=== PATIENT | female | born 1975 | race Caucasian/White ===

== ENCOUNTER 2018-02-13 14:58 | Observation (INO) | payer MEDICARE ==
--- NOTE | 2018-02-13 15:01 | PDOC ---
History of Present Illness - General Stated Complaint: INTOX Time Seen by Provider: 02/13/18 15:01 History Source: Patient, EMS Exam Limitations: Intoxication - History of Present Illness Initial Comments: 02/13/18 15:20 42 year old female BIBA for ETOH intoxication. Per EMS pt was found by cleaning staff at [facility] intoxicated and brought to ED. Pt reports no pain. States she has not been vomiting, but has vomit on her shirt. Pt refuses to answer questions or answers inappropriately. Past History - Past Medical History Allergies/Adverse Reactions: Allergies Allergy/AdvReac Type Severity Reaction Status Date / Time No Allergy Information Allergy Verified 02/13/18 15:32 Available Review of Systems - Review of Systems Able to Perform ROS?: No Comments:: 02/13/18 15:22 Pt is intoxicated. *Physical Exam - Physical Exam Comments: 02/13/18 15:22 Constitutional: Well-nourished, Well-developed, appearing stated age. dishelved. vomit on her shirt and pants. HEENT: head is normocephalic, atraumatic. EOMI. PERRLA. Neck: supple. Full ROM. Heart: regular rhythm. no murmurs, rubs or gallops. Lungs: clear to auscultation bilaterally. no crackles, rhonchi or wheezing. no stridor. Abdomen: soft, nontender. normal bowel sounds. no rebound, guarding, masses. Extremities: Peripheral pulses intact. No lower extremity edema. Neurological: CN 2-12 grossly intact. Moves all four extremities. oriented x1. Psych: awake. somnolent. answers questions inappropriately. follows commands. ED Treatment Course - LABORATORY CBC & Chemistry Diagram: 02/13/18 15:44 02/13/18 15:44 Medical Decision Making - Medical Decision Making 02/13/18 15:37 42 year old female [facility]. Pt responsive, answers questions inappropriately, elusive. Initial Vital Signs Pulse Resp BP Pulse Ox 94 H 16 108/60 98 02/13/18 15:24 02/13/18 15:24 02/13/18 15:24 02/13/18 15:24 No tachycardia. No tachypnea. Mild hypotension - Likely dehydrated. - Banana bag ordered No hypoxia on room air. Concern for intoxication - Pending tox labs - Pending EKG 02/13/18 16:30 Pt pulled out her IV. 02/13/18 16:56 CBC WBC 9.5 K/mm3 (4.0-10.0) 02/13/18 15:44 RBC 4.69 M/mm3 (3.60-5.2) 02/13/18 15:44 Hgb 14.7 GM/dL (10.7-15.3) 02/13/18 15:44 Hct 44.4 % (32.4-45.2) 02/13/18 15:44 MCV 94.7 fl (80-96) 02/13/18 15:44 MCH 31.3 pg (25.7-33.7) 02/13/18 15:44 MCHC 33.1 g/dl (32.0-36.0) 02/13/18 15:44 RDW 15.6 % (11.6-15.6) 02/13/18 15:44 Plt Count 411 K/MM3 (134-434) 02/13/18 15:44 MPV 9.1 fl (7.5-11.1) 02/13/18 15:44 Absolute Neuts (auto) 6.1 K/mm3 (1.5-8.0) 02/13/18 15:44 Neutrophils % 64.4 % (42.8-82.8) 02/13/18 15:44 Lymphocytes % 28.8 % (8-40) 02/13/18 15:44 Monocytes % 4.9 % (3.8-10.2) 02/13/18 15:44 Eosinophils % 1.1 % (0-4.5) 02/13/18 15:44 Basophils % 0.8 % (0-2.0) 02/13/18 15:44 Nucleated RBC % 0 % (0-0) 02/13/18 15:44 CMP Sodium 147 mmol/L (136-145) H 02/13/18 15:44 Potassium 4.1 mmol/L (3.5-5.1) 02/13/18 15:44 Chloride 111 mmol/L (98-107) H 02/13/18 15:44 Carbon Dioxide 29 mmol/L (21-32) 02/13/18 15:44 Anion Gap 7 MMOL/L (8-16) L 02/13/18 15:44 BUN 6 mg/dL (7-18) L 02/13/18 15:44 Creatinine 0.7 mg/dL (0.55-1.3) 02/13/18 15:44 Creat Clearance w eGFR > 60 (>60) 02/13/18 15:44 Random Glucose 92 mg/dL (74-106) 02/13/18 15:44 Serum Osmolality 414 mosm/kg (278-305) H 02/13/18 15:44 Calcium 9.1 mg/dL (8.5-10.1) 02/13/18 15:44 Magnesium 2.3 mg/dL (1.8-2.4) 02/13/18 15:44 Total Bilirubin 0.2 mg/dL (0.2-1) 02/13/18 15:44 AST 22 U/L (15-37) 02/13/18 15:44 ALT 22 U/L (13-61) 02/13/18 15:44 Alkaline Phosphatase 55 U/L (45-117) 02/13/18 15:44 Total Protein 7.5 g/dl (6.4-8.2) 02/13/18 15:44 Albumin 4.1 g/dl (3.4-5.0) 02/13/18 15:44 Lipase 279 U/L (73-393) 02/13/18 15:44 Beta HCG, Quant < 1.0 mIU/ml 02/13/18 15:44 Elevated serum osmols. Slightly elevated Sodium. - Pt is likely dehydrated - NS ordered Normal potassium. Pt is not . Alcohol level 449 Negative salicyclates and acetaminophen. 02/13/18 17:26 Pt vomiting. IV placed into left AC. IV Zofran ordered. Pt continues to be confused. Pt follows commands but requires repetitive explanation. 02/13/18 18:06 Pt reassessed, sleeping comfortably. 02/13/18 18:25 Pt refused EKG. Pt is spitting at tech attempting to perform the EKG. 02/13/18 18:50 Pt reassessed, sleeping comfortably. 02/13/18 19:23 I signed this patient out to Dr. Mccann, who will assume care for the patient while she is in the Emergency Department. *DC/Admit/Observation/Transfer Diagnosis at time of Disposition: Alcohol intoxication - Referrals Referrals: Juan Diego Bland MD [Staff Physician] - Carlos White MD [Staff Physician] - - Patient Instructions Printed Discharge Instructions: DI for Alcohol Abuse Additional Instructions: You were seen today for alcohol intoxication. Your blood work revealed your sodium (salt) was a little high. You received fluids for this. The rest of your blood work was normal. Your refused the EKG. I advise you to seek detox treatment. Stopping drinking alcohol on your own can result in withdrawal. I have included a referral for a couple of detox physicians. Call them tomorrow morning and seek information on receiving treatment. Follow up with your primary care doctor in 1-2 days. Your care is not complete until you follow up. Return to the Emergency Department for tremors, fever, chills, vomiting, altered mental status, chest pain, shortness of breath, or any other new, worsening or concerning symptoms. - Post Discharge Activity
[2018-02-13 15:32] VITALS: BMI 58.6
[2018-02-13] MEDS ORDERED: FOLIC ACID INJECTION - 1 MG, THIAMINE HCL 100 MG, MULTIVIT INJECTION ADULT 10 ML in SOD... IVPB ONE (15:38)
--- NOTE | 2018-02-13 15:54 | PDOC ---
Attending Attestation - Resident Resident Name: Evelyn Cabrera - ED Attending Attestation I have performed the following: I have examined & evaluated the patient, The case was reviewed & discussed with the resident, I agree w/resident's findings & plan - HPI HPI: 02/13/18 16:21 The patient is a 42 year old female, who presents to the emergency department via EMS with alcohol intoxication, with n/v. As per EMS, the patient was found intoxicated in her hotel room at the [facility] by the cleaning staff. Patient is a poor historian secondary to alcohol intoxication. 02/13/18 16:24 - Physicial Exam PE: 02/13/18 16:21 Clinically intoxicated, slurring speech, goes back to sleep but arousable. Poorly cooperative, not agitated. +vomitus on shirt, disheveled. PERRL, EOMI, dry membranes. +scleral injection. no neck tenderness. RRR, CTAB, abdomen soft, NT, WWP, no external signs of trauma. gait unable to be assessed 02/13/18 16:24 02/15/18 09:15 - Medical Decision Making 02/13/18 16:23 42-year-old female with limited medical history presenting with alcohol intoxication, found at local [facility] with 3 empty fireballs. history is limited secondary to her presentation. Does appear to have vomitus on her shirt but does not complaining of any nausea, no external signs of trauma. DDx. alcohol intoxication, alcohol withdrawal. drug intoxication; Pancreatitis, hepatitis, , hydration, metabolic/electorally disturbances, toxic ingestant basic labs and lytes with hypernatremia, c/w poor hydration and intoxicated state. will hydrate with IVF, given banana bag and repletion. however, pt pulled out IV and poorly cooperative. preg test_neg serum tox screen_ negative, +ETOH as expected EKG_NSR, nonischemic. normal intervals including QRS and QTc no indication for Urine drug screen, as not likely to size changer. appears clinically intoxicated, will monitor closely. defer imaging at this time , check again with sobriety and reassessment. pt monitored closely in the ED, sobriety hold. remained comfortable, no acute events, VS remain stable. signed out to evening team pending reeval 02/15/18 09:15
[2018-02-13 15:55] LABS: BASO % 0.8 % (0-2.0); EOS % 1.1 % (0-4.5); HEMATOCRIT 44.4 % (32.4-45.2); HEMOGLOBIN 14.7 GM/dL (10.7-15.3); LYMPH % 28.8 % (8-40); MCH 31.3 pg (25.7-33.7); MCHC 33.1 g/dl (32.0-36.0); MEAN CELL VOLUME 94.7 fl (80-96); MEAN PLT VOLUME 9.1 fl (7.5-11.1); MONO % 4.9 % (3.8-10.2); NEUT % 64.4 % (42.8-82.8); PLATELET COUNT 411 K/MM3 (134-434); RBC 4.69 M/mm3 (3.60-5.2); RDW 15.6 % (11.6-15.6); WHITE BLOOD COUNT 9.5 K/mm3 (4.0-10.0)
[2018-02-13 16:01] LABS: OSMOLALITY,SERUM 414 mosm/kg (278-305)
[2018-02-13 16:13] LABS: ALBUMIN 4.1 g/dl (3.4-5.0); ALK PHOS 55 U/L (45-117); ANION GAP 7 MMOL/L (8-16); BILIRUBIN,TOTAL 0.2 mg/dL (0.2-1); BLOOD UREA NITROGEN 6 mg/dL (7-18); CALCIUM 9.1 mg/dL (8.5-10.1); CHLORIDE 111 mmol/L (98-107); CO2 29 mmol/L (21-32); CREATININE 0.7 mg/dL (0.55-1.3); GLUCOSE,RANDOM 92 mg/dL (74-106); LIPASE 279 U/L (73-393); MAGNESIUM 2.3 mg/dL (1.8-2.4); POTASSIUM 4.1 mmol/L (3.5-5.1); SGOT/AST 22 U/L (15-37); SGPT/ALT 22 U/L (13-61); SODIUM 147 mmol/L (136-145); TOT PROT 7.5 g/dl (6.4-8.2)
[2018-02-13] MEDS ORDERED: SODIUM CHLORIDE 0.9% 500 ML INFUS.BAG IV ONE (16:29)
[2018-02-13] MEDS ORDERED: ONDANSETRON *ODT* 4 MG TABLET SL ONE (17:13)
[2018-02-13] MEDS ORDERED: ONDANSETRON 4 MG/2 ML VIAL IVPUSH ONE (17:25)
[2018-02-13] MEDS ORDERED: ONDANSETRON 4 MG/2 ML VIAL ONE (17:37)
--- NOTE | 2018-02-13 19:44 | PDOC ---
*Physical Exam - Vital Signs Last Vital Signs Temp Pulse Resp BP Pulse Ox 94 H 16 108/60 98 02/13/18 15:24 02/13/18 15:24 02/13/18 15:24 02/13/18 15:24 - Physical Exam Comments: 02/13/18 19:36 Patient's care endorsed to me by Dr. Cabrera at the end of her shift. Patient was found by cleaning staff at [facility], with emesis on herself, confused, serum osms high and Na high, EtOH in the 400s (reportedly had 3 empty bottles of fireball in her room). Awaiting sobriety and then will re-assess and decide on dispo. ED Treatment Course - LABORATORY CBC & Chemistry Diagram: 02/13/18 15:44 02/13/18 15:44 - ADDITIONAL ORDERS Additional order review: Laboratory Results 02/13/18 02/13/18 02/13/18 15:44 15:44 15:44 Sodium 147 H Potassium 4.1 Chloride 111 H Carbon Dioxide 29 Anion Gap 7 L BUN 6 L Creatinine 0.7 Creat Clearance w eGFR > 60 Random Glucose 92 Serum Osmolality 414 H Calcium 9.1 Magnesium 2.3 Total Bilirubin 0.2 AST 22 ALT 22 Alkaline Phosphatase 55 Total Protein 7.5 Albumin 4.1 Lipase 279 Beta HCG, Quant < 1.0 Salicylates 3.4 Acetaminophen < 2.0 L Alcohol, Quantitative 449.1 H 02/13/18 15:44 RBC 4.69 MCV 94.7 MCHC 33.1 RDW 15.6 MPV 9.1 Neutrophils % 64.4 Lymphocytes % 28.8 Monocytes % 4.9 Eosinophils % 1.1 Basophils % 0.8 - Medications Given in the ED: ED Medications Discontinued Medications Generic Name Dose Route Start Last Admin Trade Name Freq PRN Reason Stop Dose Admin Ondansetron HCl 4 mg 02/13/18 17:13 02/13/18 17:36 Zofran Odt - SL 02/13/18 17:14 Not Given ONCE ONE Ondansetron HCl 4 mg 02/13/18 17:25 02/13/18 17:49 Zofran Injection IVPUSH 02/13/18 17:26 4 mg ONCE ONE Administration Sodium Chloride 1,000 ml 02/13/18 16:29 02/13/18 17:48 Normal Saline - IV 02/13/18 16:30 1,000 ml ONCE ONE Administration Medical Decision Making - Medical Decision Making 02/13/18 20:00 Patient stood in room, pulled out IV, urinated on the floor, states wants to leave. Cannot give me an answer when I ask whether she is living at the hotel or just visiting. 02/13/18 22:21 Patient initially sleeping comfortably on my re-assessment, awakens easily, still acting bizarrely. Answering simple questions with nonsensical answers but no slurred speech and is coherent. Slight scleral injection. Steady on her feet when standing (I assist her) and able to walk. Has sweater on in exam room at this time but no pants or underswear. Vital Signs Temperature Pulse Rate 78 02/13/18 23:20 Respiratory Rate 18 02/13/18 23:20 Blood Pressure 124/70 02/13/18 23:20 O2 Sat by Pulse Oximetry (%) 99 02/13/18 19:20 02/13/18 23:30 The patient is still clinically intoxicated. Has been here for >8 hours. Her initial blood EtOH was >400. At this point, she meets criteria for ED obs and still will need more time to sober up. Lanica has been microblogged for ED Obs. Blank Decision to Admit order placed. 02/13/18 23:52 I spoke with Raul Gomez, patient ED Obs'ed to Dr. Trejo. Ordered UDS and will continue asking patient for urine sample (she has been unwilling up until this point). *DC/Admit/Observation/Transfer Diagnosis at time of Disposition: Alcohol intoxication Qualifiers: Complication of substance-induced condition: uncomplicated Qualified Code(s): F10.920 - Alcohol use, unspecified with intoxication, uncomplicated - Discharge Dispostion Condition at time of disposition: Guarded Decision to Admit order: Yes - Referrals - Patient Instructions - Post Discharge Activity
[2018-02-13 19:52] VITALS: PULSE 78
[2018-02-13 23:44] VITALS: BP 124/70
--- NOTE | 2018-02-14 00:35 | HP ---
CHIEF COMPLAINT: BIBA 2/2 Alcohol intoxication PCP: Dr Carlos White HISTORY OF PRESENT ILLNESS: Pt is a poor historian 2/2 alcohol intoxication. Pt is a 42 y/o lady with no significant past medical history (per pt) who presented via ambulance to [facility] ED yesterday afternoon after being found at the [facility] by cleaning staff and observed to be severely impaired 2/2 substance abuse. Pt reportedly had 3 empty bottles of fireball in her room. ER course was notable for: (1) Alcohol blood level 449.1 (2) Serum Osmolality 414 (3) Na+ 147 Recent Travel: denies PAST MEDICAL HISTORY: States she has no past medical history PAST SURGICAL HISTORY: denies Social History: Smoking: Smokes occasionally, 1 cigarette per month Alcohol: Denies? Drugs: Denies Family History: Allergies No Allergy Information Available Allergy (Verified 02/13/18 15:32) HOME MEDICATIONS: Home Medications Medication Instructions Recorded Unobtainable 02/13/18 REVIEW OF SYSTEMS CONSTITUTIONAL: Absent: fever, chills, diaphoresis, generalized weakness, malaise, loss of appetite, weight change HEENT: Absent: rhinorrhea, nasal congestion, throat pain, throat swelling, difficulty swallowing, mouth swelling, ear pain, eye pain, visual changes CARDIOVASCULAR: Absent: chest pain, syncope, palpitations, irregular heart rate, lightheadedness , peripheral edema RESPIRATORY: Absent: cough, shortness of breath, dyspnea with exertion, orthopnea, wheezing, stridor, hemoptysis GASTROINTESTINAL: PRESENT: abdominal pain, nausea, vomiting GENITOURINARY: Absent: dysuria, frequency, urgency, hesitancy, hematuria, flank pain, genital pain MUSCULOSKELETAL: Absent: myalgia, arthralgia, joint swelling, back pain, neck pain SKIN: Absent: rash, itching, pallor HEMATOLOGIC/IMMUNOLOGIC: Absent: easy bleeding, easy bruising, lymphadenopathy, frequent infections ENDOCRINE: Absent: unexplained weight gain, unexplained weight loss, heat intolerance, cold intolerance NEUROLOGIC: Absent: headache, focal weakness or paresthesias, dizziness, unsteady gait, seizure, mental status changes, bladder or bowel incontinence PSYCHIATRIC: Absent: anxiety, depression, suicidal or homicidal ideation, hallucinations. PHYSICAL EXAMINATION Vital Signs - 24 hr 02/13/18 02/13/18 02/13/18 15:24 19:20 23:20 Pulse Rate 94 H Pulse Rate [ 78 78 Left Radial] Respiratory 16 18 18 Rate Blood Pressure 108/60 Blood Pressure 120/72 124/70 [Right Arm] O2 Sat by Pulse 98 99 Oximetry (%) HEAD: NC/AT EYES: PERRL, EOMI. No Nystagmus appreciated EARS, NOSE, THROAT: MMM. LUNGS: CTA b/L HEART: RRR No MRG S1S2. ABDOMEN: RUQ Tenderness, ND No Guarding or rigidity NEURO: No tremors. Strength 5/5 throughout. SKIN: No rashes or lesions appreciated Laboratory Results - last 24 hr 02/13/18 02/13/18 02/13/18 15:44 15:44 15:44 WBC 9.5 RBC 4.69 Hgb 14.7 Hct 44.4 MCV 94.7 MCH 31.3 MCHC 33.1 RDW 15.6 Plt Count 411 MPV 9.1 Absolute Neuts (auto) 6.1 Neutrophils % 64.4 Lymphocytes % 28.8 Monocytes % 4.9 Eosinophils % 1.1 Basophils % 0.8 Nucleated RBC % 0 Sodium 147 H Potassium 4.1 Chloride 111 H Carbon Dioxide 29 Anion Gap 7 L BUN 6 L Creatinine 0.7 Creat Clearance w eGFR > 60 Random Glucose 92 Serum Osmolality 414 H Calcium 9.1 Magnesium 2.3 Total Bilirubin 0.2 AST 22 ALT 22 Alkaline Phosphatase 55 Total Protein 7.5 Albumin 4.1 Lipase 279 Beta HCG, Quant < 1.0 Salicylates 3.4 Acetaminophen < 2.0 L Alcohol, Quantitative 02/13/18 15:44 WBC RBC Hgb Hct MCV MCH MCHC RDW Plt Count MPV Absolute Neuts (auto) Neutrophils % Lymphocytes % Monocytes % Eosinophils % Basophils % Nucleated RBC % Sodium Potassium Chloride Carbon Dioxide Anion Gap BUN Creatinine Creat Clearance w eGFR Random Glucose Serum Osmolality Calcium Magnesium Total Bilirubin AST ALT Alkaline Phosphatase Total Protein Albumin Lipase Beta HCG, Quant Salicylates Acetaminophen Alcohol, Quantitative 449.1 H ASSESSMENT/PLAN: Pt wished to AMA prior to our hospitalist team assessing her. Risks explained to pt. Pt stated her understanding and compliance. Pt signed AMA form in ED. Visit type - Emergency Visit Emergency Visit: Yes ED Registration Date: 02/13/18 Care time: The patient presented to the Emergency Department on the above date and was hospitalized for further evaluation of their emergent condition. - New Patient This patient is new to me today: Yes Date on this admission: 02/14/18 - Critical Care Critical Care patient: No
--- NOTE | 2018-02-14 04:15 | PN ---
Teaching Attending Note Name of Resident: Raul Estevez ATTENDING PHYSICIAN STATEMENT I saw the patient with housestaff. Patient refused to be admitted to [facility] and signed out AMA before I can a chance to examine her. Patient was aware of risks of signing out against medical advice.
[2018-02-14] MEDS ORDERED: HEPARIN NA (PORCINE) 5,000 UNITS/ML 1ML VIAL SQ SCH (06:00)
--- NOTE | 2018-02-14 06:17 | DS ---
Physical Exam: Laboratory Results - last 24 hr 02/13/18 02/13/18 02/13/18 15:44 15:44 15:44 WBC 9.5 RBC 4.69 Hgb 14.7 Hct 44.4 MCV 94.7 MCH 31.3 MCHC 33.1 RDW 15.6 Plt Count 411 MPV 9.1 Absolute Neuts (auto) 6.1 Neutrophils % 64.4 Lymphocytes % 28.8 Monocytes % 4.9 Eosinophils % 1.1 Basophils % 0.8 Nucleated RBC % 0 Sodium 147 H Potassium 4.1 Chloride 111 H Carbon Dioxide 29 Anion Gap 7 L BUN 6 L Creatinine 0.7 Creat Clearance w eGFR > 60 Random Glucose 92 Serum Osmolality 414 H Calcium 9.1 Magnesium 2.3 Total Bilirubin 0.2 AST 22 ALT 22 Alkaline Phosphatase 55 Total Protein 7.5 Albumin 4.1 Lipase 279 Beta HCG, Quant < 1.0 Salicylates 3.4 Acetaminophen < 2.0 L Alcohol, Quantitative 02/13/18 15:44 WBC RBC Hgb Hct MCV MCH MCHC RDW Plt Count MPV Absolute Neuts (auto) Neutrophils % Lymphocytes % Monocytes % Eosinophils % Basophils % Nucleated RBC % Sodium Potassium Chloride Carbon Dioxide Anion Gap BUN Creatinine Creat Clearance w eGFR Random Glucose Serum Osmolality Calcium Magnesium Total Bilirubin AST ALT Alkaline Phosphatase Total Protein Albumin Lipase Beta HCG, Quant Salicylates Acetaminophen Alcohol, Quantitative 449.1 H HOSPITAL COURSE: Date of Admission:02/13/18 Date of Discharge: 02/14/18 Pt signed out AMA. Risks fully explained to pt prior to being medically evaluated by medical team. Pt signed AMA form in ED. Minutes to complete discharge: 40 Discharge Summary Reason For Visit: ALCOHOLIC INTOXICATION Current Active Problems Alcohol intoxication (Acute) Condition: Guarded - Instructions Diet, Activity, Other Instructions: You were seen today for alcohol intoxication. Your blood work revealed your sodium (salt) was a little high. You received fluids for this. The rest of your blood work was normal. Your refused the EKG. I advise you to seek detox treatment. Stopping drinking alcohol on your own can result in withdrawal. I have included a referral for a couple of detox physicians. Call them tomorrow morning and seek information on receiving treatment. Follow up with your primary care doctor in 1-2 days. Your care is not complete until you follow up. Return to the Emergency Department for tremors, fever, chills, vomiting, altered mental status, chest pain, shortness of breath, or any other new, worsening or concerning symptoms. Referrals: Carlos White MD [Staff Physician] - Juan Diego Bland MD [Staff Physician] - - Home Medications Comprehensive Discharge Medication List: Ambulatory Orders Unobtainable 02/13/18 This patient is new to me today: Yes Date on this admission: 02/14/18 Emergency Visit: Yes ED Registration Date: 02/13/18 Care time: The patient presented to the Emergency Department on the above date and was hospitalized for further evaluation of their emergent condition. Critical Care patient: No - Discharge Referral Referred to [facility] No
--- NOTE | 2018-02-14 21:26 | EKG ---
Test Reason : Blood Pressure : / mmHG Vent. Rate : 084 BPM Atrial Rate : 084 BPM P-R Int : 172 ms QRS Dur : 080 ms QT Int : 364 ms P-R-T Axes : 076 050 066 degrees QTc Int : 430 ms NORMAL SINUS RHYTHM NONSPECIFIC T WAVE ABNORMALITY ABNORMAL ECG NO PREVIOUS ECGS AVAILABLE Confirmed by SHABBIR HOWARD MD ([id number]) on 02/14/2018 9:25:45 PM Referred By: Confirmed By:SHABBIR HOWARD MD
== END 2018-02-14 03:00 | disposition left against medical advice (07) ==
LOC: JER 14:58 → JERBED 23:31
PROVIDERS: ADMIT Internal Medicine; ATTEND Internal Medicine
PROC: 3E033GC Introduction of Other Therapeutic Substance into Peripheral Vein, Percutaneous Approach (ICD-10-PCS; principal; 2018-02-13)
PROC: 3E0337Z Introduction of Electrolytic and Water Balance Substance into Peripheral Vein, Percutaneous Approach (ICD-10-PCS; 2018-02-13)
DX: F10.129 Alcohol abuse with intoxication, unspecified (principal); Y90.8 Blood alcohol level of 240 mg/100 ml or more
CPT/HCPCS: 36415; 80053; 80307; 83690; 83735; 83930; 84702; 85025; 93005; 93010; 96365; 96366; 96375; 99283-25; G0378; J7030

== ENCOUNTER 2018-02-14 13:46 | Emergency (ER) | payer SELFPAY ==
[2018-02-14 14:29] VITALS: BMI 26.6
--- NOTE | 2018-02-14 14:34 | PDOC ---
History of Present Illness - General Chief Complaint: Alcohol intoxication Stated Complaint: ALCOHOL INTOXICATION Time Seen by Provider: 02/14/18 14:29 - History of Present Illness Initial Comments: 02/14/18 14:29 Ms. Atkins is a 42 yo female w/ unknown pmh BIBA after found unresponsive in hotel room. Patient was found to have urinated on self and EMS was called. Patient alert at presentation however history inconsistent. Past History - Past Medical History Allergies/Adverse Reactions: Allergies Allergy/AdvReac Type Severity Reaction Status Date / Time No Allergy Information Allergy Verified 02/14/18 14:28 Available Home Medications: Ambulatory Orders Unobtainable 02/13/18 Asthma: Yes COPD: No CHF: No - Suicide/Smoking/Psychosocial Hx Smoking History: Unknown if ever smoked Have you smoked in the past 12 months: No Information on smoking cessation initiated: No Hx Alcohol Use: No Drug/Substance Use Hx: No Substance Use Type: Alcohol Review of Systems - Review of Systems Comments:: 02/14/18 14:34 Unable to obtain further. *Physical Exam - Vital Signs Last Vital Signs Temp Pulse Resp BP Pulse Ox 97 F L 92 H 18 119/68 100 02/14/18 14:19 02/14/18 14:19 02/14/18 14:19 02/14/18 14:19 02/14/18 14:19 - Physical Exam Comments: 02/14/18 14:34 GENERAL: +Patient sleeping in bed however arousable; oriented, in no acute distress HEAD: No signs of trauma, normocephalic, atraumatic EYES: PERRLA, EOMI, sclera anicteric, conjunctiva clear ENT: Auricles normal inspection, hearing grossly normal, nares patent, oropharynx clear without exudates. Moist mucosa NECK: Normal ROM, supple, no lymphadenopathy, JVD, or masses LUNGS: No distress, speaks full sentences, clear to auscultation bilaterally HEART: Regular rate and rhythm, normal S1 and S2, no murmurs, rubs or gallops, peripheral pulses normal and equal bilaterally. ABDOMEN: Soft, nontender, normoactive bowel sounds. No guarding, no rebound. No masses EXTREMITIES: Normal inspection, Normal range of motion, no edema. No clubbing or cyanosis. NEUROLOGICAL: Cranial nerves II through XII grossly intact. Normal speech, no focal sensorimotor deficits SKIN: Warm, Dry, normal turgor, no rashes or lesions noted. Medical Decision Making - Medical Decision Making 02/14/18 15:38 Ms. Atkins is a 42 yo female found to have presented yesterday for similar process via chart review w/ acute intoxication at that time. Upon repeat interview patient endorsed drinking alcohol this morning. Patient increasingly alert. Tolerating PO at this time. Discharge pending clinical sobriety. 02/14/18 17:44 Patient alert and oriented. Walking with steady gait, speech clear. Clinically sober and requesting discharge. Will discharge to home per request. *DC/Admit/Observation/Transfer Diagnosis at time of Disposition: Alcohol intoxication Qualifiers: Complication of substance-induced condition: uncomplicated Qualified Code(s): F10.920 - Alcohol use, unspecified with intoxication, uncomplicated - Discharge Dispostion Disposition: HOME - Referrals - Patient Instructions Printed Discharge Instructions: DI for Alcohol Abuse Additional Instructions: You were evaluated today in the ER for your intoxication. Please follow-up with primary care provider this week for further evaluation. Return to ER if any fever, chills, pain, altered mental status, or other concerning symptoms. - Post Discharge Activity
[2018-02-14] MEDS ORDERED: HEMOQUE TEST 1 EACH EACH ONE (14:47)
--- NOTE | 2018-02-14 15:33 | PDOC ---
Attending Attestation - Physicial Exam PE: GENERAL: Awake, alert, in no acute distress. Answering questions. Intoxicated. Alcohol on breath. HEAD: No signs of trauma EYES: PERRLA, EOMI, sclera anicteric, conjunctiva clear ENT: Auricles normal inspection, hearing grossly normal, nares patent. NECK: Normal ROM, supple, JVD, or masses EXTREMITIES: Normal range of motion, no edema. No clubbing or cyanosis. No cords, erythema, or tenderness NEUROLOGICAL: Cranial nerves II through XII grossly intact. Normal speech. SKIN: Warm, Dry, normal turgor, no rashes or lesions noted. <Skye Franklin - Last Filed: 02/14/18 16:21> - Resident Resident Name: Cruz Noel - ED Attending Attestation I have performed the following: I have examined & evaluated the patient, The case was reviewed & discussed with the resident, I agree w/resident's findings & plan, Exceptions are as noted - HPI HPI: 02/14/18 15:31 A portion of this note was documented by scribe services under my direction. I have reviewed the details of the note, within reason, and agree with the documentation with the following case summary and management plan written by me. Patient treated in the ED. Nursing notes are reviewed and incorporated into the medical decision-making. Vital signs reviewed. Vital Signs Temp Pulse Resp BP Pulse Ox 97 F L 92 H 18 119/68 100 02/14/18 14:19 02/14/18 14:19 02/14/18 14:19 02/14/18 14:19 02/14/18 14:19 42-year-old female patient with history of alcohol use brought in by EMS for alcohol intoxication. The patient was found again at the hotel room intoxicated. EMS was called and the patient was brought to the ED. Patient admits to drinking alcohol this morning but otherwise is evasive in terms of where she's been since her discharge yesterday. Denies self-harm or other acute injuries. Glucose is 60 here. Patient was given juice and tolerating. Once patient is sober, we'll reinterview patient. If the patient admits no other issues and otherwise with no other symptoms, we'll allow the patient to be discharged home. - Medical Decision Making 02/14/18 17:52 Imp: Alcohol intoxication. However, after observing patient for 4 hours. Pt is now sober and ambulatory without difficult. Pt has no complaints and denies any other findings. Will d/c patient home. <Will Menard - Last Filed: 02/14/18 17:52>
[2018-02-14 18:03] VITALS: BP 128/82; PULSE 88; TEMP 99.3
== END 2018-02-14 18:10 | disposition home or self-care (01) ==
LOC: JER 13:46
DX: F10.120 Alcohol abuse with intoxication, uncomplicated (principal); Y90.9 Presence of alcohol in blood, level not specified
CPT/HCPCS: 82962; 99281-25

== ENCOUNTER 2018-02-14 23:04 | Emergency (ER) | payer SELFPAY ==
--- NOTE | 2018-02-14 23:35 | PDOC ---
History of Present Illness - General Stated Complaint: ALCOHOL iNTOXICATION History Source: Patient - History of Present Illness Initial Comments: The patient is a 42F who presents for a second time today by ambulance from her hotel for alcohol intoxication. The patient denies any current complaints at this time. She denies any new pain. She reports falling in the hotel lobby and endorses LOC. She denies current LYON, emesis, chest pain, SOB, or changes in sensation. 02/15/18 00:02 Past History - Past Medical History Allergies/Adverse Reactions: Allergies Allergy/AdvReac Type Severity Reaction Status Date / Time No Allergy Information Allergy Verified 02/15/18 00:00 Available Home Medications: Ambulatory Orders Unobtainable 02/13/18 Asthma: Yes COPD: No CHF: No - Suicide/Smoking/Psychosocial Hx Smoking History: Unknown if ever smoked Have you smoked in the past 12 months: No Hx Alcohol Use: No Drug/Substance Use Hx: No Substance Use Type: Alcohol Review of Systems - Review of Systems Able to Perform ROS?: Yes Comments:: GENERAL/CONSTITUTIONAL: No fever or chills HEAD, EYES, EARS, NOSE AND THROAT: No change in vision. No ear pain or discharge. No sore throat CARDIOVASCULAR: No chest pain or shortness of breath RESPIRATORY: No cough, wheezing, or hemoptysis GASTROINTESTINAL: No nausea, vomiting, diarrhea or constipation GENITOURINARY: No dysuria, frequency, or change in urination MUSCULOSKELETAL: No joint or muscle swelling or pain. +chronic neck pain NEUROLOGIC: No headache, vertigo, loss of consciousness, or change in strength/ sensation ENDOCRINE: No increased thirst. No abnormal weight change HEMATOLOGIC/LYMPHATIC: No anemia, easy bleeding, or history of blood clots ALLERGIC/IMMUNOLOGIC: No hives or skin allergy 02/15/18 00:05 *Physical Exam - Physical Exam Comments: GENERAL: Awake, alert, in no acute distress HEAD: No signs of trauma, normocephalic, atraumatic EYES: PERRL, EOMI, sclera anicteric ENT: Hearing grossly normal, nares patent, oropharynx clear without exudates. Moist mucosa NECK: Normal ROM, supple, no lymphadenopathy LUNGS: No distress, speaks full sentences, clear to auscultation bilaterally HEART:Regular rate and rhythm, normal S1 and S2, no murmurs appreciated, peripheral pulses normal and equal bilaterally ABDOMEN: Soft, nontender, nondistended EXTREMITIES : Normal inspection, Normal range of motion, no edema. No clubbing or cyanosis NEUROLOGICAL: Cranial nerves II through XII grossly intact. Slurred speech, no focal sensorimotor deficits SKIN: Warm, Dry, normal turgor, no rashes or lesions noted 02/15/18 00:05 Medical Decision Making - Medical Decision Making The patient is a 42F who presents for alcohol intoxication by EMS after being found down in her hotel lobby again this evening. The patient was discharged this afternoon at approximately 1800 being clinically sober per the previous provider. Labs at that time demonstrated no leukocytosis, mild hypernatremia to 145, otherwise her lytes were wnl. EtOH was 440s. ED Course Patient will be observed until clinically sober, then will be allowed discharge home CT Head w/o contrast to evaluate for acute bleed s/p fall w/ LOC 02/15/18 00:06 CT Head significant for sinusitis v mastoiditis. Patient initially w/o complaint of symptoms; however, exam clouded by intoxication. Plan for ED obs until clinically sober and will re-evaluate mastoid tenderness/symptoms at that time. 02/15/18 01:20 I have transferred care of the patient to Dr. Marquez and discussed the clinical presentation, work-up and ED course thus far. 02/15/18 02:01 *DC/Admit/Observation/Transfer Diagnosis at time of Disposition: Alcohol intoxication Qualifiers: Complication of substance-induced condition: uncomplicated Qualified Code(s): F10.920 - Alcohol use, unspecified with intoxication, uncomplicated - Discharge Dispostion Condition at time of disposition: Good Decision to Admit order: Yes - Referrals [place] [facility] [place] [facility] [place] Group] - Patient Instructions Printed Discharge Instructions: DI for Alcohol Abuse Additional Instructions: You were seen today in the Emergency Department for acute alcohol intoxication and loss of consciousness after a fall. You were not found to have an acute bleed on CT scan. Please review the handouts provided at discharge. Please follow up with the referrals in your discharge paperwork. Return to the Emergency Department if you develop fevers, vomiting, seizure- like activity, shakiness, worsening symptoms, or new/concerning symptoms. - Post Discharge Activity
[2018-02-15] VITALS: BP 130/88; PULSE 96; TEMP 98; BMI 26.6
--- NOTE | 2018-02-15 02:01 | PDOC ---
Attending Attestation - Resident Resident Name: Yonathan Stewart - ED Attending Attestation I have performed the following: I have examined & evaluated the patient, The case was reviewed & discussed with the resident, I agree w/resident's findings & plan, Exceptions are as noted - HPI HPI: 02/15/18 01:54 42 yo female with AOB and intoxicated BIBA from her hotel head no scalp lacerations eyes eomi neck no midline cervical vertebral tenderness lungs cta b/l cvs [id number] extremities abd nontender ext no deformities neuro intoxicated,keeps repeating" everything's good' - Physicial Exam PE: 02/15/18 16:49 please see above PE - Medical Decision Making 02/15/18 02:02 ct scan head no fracture,no acute bleed plan ED OBS and plan to discharge when safe 02/15/18 02:12
--- NOTE | 2018-02-15 02:05 | PDOC ---
*Physical Exam - Vital Signs Last Vital Signs Temp Pulse Resp BP Pulse Ox 98.0 F 96 H 18 130/88 97 02/14/18 23:59 02/14/18 23:59 02/14/18 23:59 02/14/18 23:59 02/14/18 23:59 Medical Decision Making - Medical Decision Making Pt signed out by Dr. Stewart. Pt presented for alcohol intoxication, shortly after being discharged. Pt is admitted for ED observation until clinically sober. Will check BGM before pt leaves, as prior glucose was in 60s. 02/15/18 02:03 Pt requested Tylenol for headache. Provided 650 mg PO Tylenol for pain. Prior liver enzymes (taken yesterday on CMP), WNL. Will re-evaluate pt. 02/15/18 03:30 Pt able to speak in full sentences without slurring. Pt able to walk in hallway without stumbling and is stable. Pt will be calling a cab to take her back to the hotel. No nystagmus present. Pt will be discharged, strict return precautions given with pt understanding. Will call cab from the waiting room. 02/15/18 06:02 *DC/Admit/Observation/Transfer Diagnosis at time of Disposition: Alcohol intoxication Qualifiers: Complication of substance-induced condition: uncomplicated Qualified Code(s): F10.920 - Alcohol use, unspecified with intoxication, uncomplicated - Discharge Dispostion Condition at time of disposition: Good Decision to Admit order: No - Referrals - Patient Instructions - Post Discharge Activity
[2018-02-15] MEDS ORDERED: ACETAMINOPHEN 325 MG TABLET (FP) PO ONE (03:26)
[2018-02-15] MEDS ORDERED: ACETAMINOPHEN 325 MG TABLET (FP) ONE (03:27)
== END 2018-02-15 06:12 ==
LOC: JER 23:04 → JERBED 02-15 01:12 → UNDOADMOB 02-15 01:12
CPT/HCPCS: 70450-TC; 99282-25